=== PATIENT | male | born 2000 | race African-American/Black ===

== ENCOUNTER 2018-05-07 22:58 | Emergency (ER) | payer MEDICAID, SELFPAY ==
[2018-05-08] MEDS ORDERED: Dexamethasone 4 mg/ml Vial ONE (00:34)
== END 2018-05-08 01:11 | disposition home or self-care (01) ==
LOC: ERS 22:58
DX: J02.9 Acute pharyngitis, unspecified (principal)
CPT/HCPCS: 87081; 87430; 99283; J1100

== ENCOUNTER 2018-06-09 13:39 | Emergency (ER) | payer SELFPAY ==
[2018-06-09] MEDS ORDERED: Acetaminophen 325 MG TAB ONE (15:20)
[2018-06-09] MEDS ORDERED: Ondansetron HCl/PF 4 MG/2 ML Vial ONE (15:20)
[2018-06-09 15:27] LABS: Hemoglobin 15.5 g/dL (14.0-18.0); Mean Corpuscular HGB CONC 34.8 g/dL (32.0-36.0); Mean Corpuscular Hemoglobin 31.6 pg (25.0-35.0); Mean Corpuscular Volume 90.8 fL (78.0-98.0); Mean Platelet Volume 6.7 fL (7.4-10.4); Platelet Count 260 thou/uL (130-400); RBC Distribution Width 11.6 % (11.5-14.5); Red Blood Cell (RBC) Count 4.91 mill/uL (4.00-5.20); White Blood Cell (WBC) Count 3.5 thou/uL (4.8-10.8)
[2018-06-09 15:37] LABS: Bilirubin Negative (Negative); Blood, Urine Negative (Negative); Clarity CLEAR (Clear); Glucose, Urine (Dipstick) Negative (Negative); Leukocyte Negative (Negative); Nitrite Negative (Negative); Protein, Urine (Dipstick) Negative (Neg-Trace); Specific Gravity, Urine 1.026 (1.002-1.036)
[2018-06-09 15:42] LABS: ALT (SGPT) 10 U/L (8-55); AST (SGOT) 14 U/L (5-34); Albumin 4.3 g/dL (3.5-5.0); Alkaline Phosphatase 54 U/L (Less than 750); Anion Gap 11 mmol/L (10-20); BUN (Urea Nitrogen) 6 mg/dL (8.9-20.6); Bilirubin, Total 0.5 mg/dL (0.2-1.2); Calc. Creatinine Clearance 0 mL/min (70-130); Calcium 9.7 mg/dL (7.8-10.44); Carbon Dioxide 28 mmol/L (22-29); Chloride 103 mmol/L (98-107); Estimated GFR-MDRD Greater than 90; Globulin 3.5 g/dL (2.4-3.5); Glucose 87 mg/dL (70-105); Lipase 18 U/L (8-78); Potassium 3.6 mmol/L (3.5-5.1); Protein, Total 7.8 g/dL (6.0-8.3); Sodium 138 mmol/L (136-145)
[2018-06-09 15:50] LABS: Band 1 % (5-11); Eosinophils 1 % (0-10); Lymphocytes 16 % (28-48); MDiff Complete? YES; Monocytes 7 % (0-4); Neutrophil 75 % (31-61); PLT Morphology Comment Appears Adequate
== END 2018-06-09 16:29 | disposition home or self-care (01) ==
LOC: ERS 13:39
DX: R19.7 Diarrhea, unspecified (principal)
CPT/HCPCS: 36415; 80053; 81003; 83690; 85025; 96361; 96374; J2405

== ENCOUNTER 2018-08-05 20:08 | Emergency (ER) | payer OTHER, SELFPAY ==
[2018-08-05] MEDS ORDERED: Dexamethasone 10 MG/ML VIAL ONE (20:25)
--- NOTE | 2018-08-05 21:19 | RAD ---
PORTABLE UPRIGHT FRONTAL CHEST RADIOGRAPH 08/05/18 COMPARISON: None. HISTORY: Dyspnea, chest pain, history of asthma. FINDINGS: No pneumothorax, pleural fluid, focal consolidation, or alveolar edema. The heart and mediastinal co ntours appear within normal limits. No acute osseous abnormality. IMPRESSION: No acute findings. POS: [facility]
== END 2018-08-05 21:15 ==
LOC: ERS 20:08
DX: J45.901 Unspecified asthma with (acute) exacerbation (principal)
CPT/HCPCS: 71045; 93005; 96374; J1100